=== PATIENT | male | born 1945 | race Caucasian/White ===

== ENCOUNTER 2023-06-19 10:58 | Inpatient (IN) ==
[2023-06-19] MEDS: Morphine 4 MG/ML VIAL (1 ml) IV ONE (12:36)
[2023-06-19] MEDS: Ondansetron 4 mg VIAL 2 MG/ML 2 ml VIAL IV ONE (12:37)
[2023-06-19] MEDS ORDERED: Senna TAB 8.6 mg TAB PO PRN (13:11)
[2023-06-19] MEDS ORDERED: Al Hydrox/Mg Hydrox/Simet LIQ 30 ML UDC PO PRN (13:11)
[2023-06-19] MEDS ORDERED: Naloxone Nasal Spray 4 MG/0.1 ML NASAL.SPR INTRANASAL PRN (13:16)
[2023-06-19] MEDS ORDERED: Dextrose 50% Syringe 50 ml 25 GM/50 ML SYRINGE IV PUSH PRN (14:36)
[2023-06-19] MEDS: Heparin 5000 UNITS/ML 1 mL VIAL SUBCUT SCH (15:16)
[2023-06-20] MEDS ORDERED: Dextrose 50% Syringe 50 ml 25 GM/50 ML SYRINGE IV PUSH PRN (01:48)
[2023-06-20] MEDS: Morphine 2 MG/ML SYRINGE IV PRN (02:59)
[2023-06-20 05:25] LABS: ABS Eosinophils 0.2 10^3/uL (0.0-0.5); ABS Lymphocytes 0.9 10^3/uL (1.0-4.8); ABS Monocytes 0.6 10^3/uL (0.0-1.1); ABS Neutrophils 5.1 10^3/uL (1.5-7.6); ABS Nucleated RBC 0.01 10^3/ul; Eosinophil % 2.4 %; Hematocrit 31.4 % (38-53); Hemoglobin 11.1 g/dL (13.2-16.3); Lymphocyte % 12.7 %; Mean Corpuscular Hemoglobin 32.7 pg (27-33); Mean Corpuscular Hgb Conc 35.4 g/dL (31-36); Mean Corpuscular Volume 92.3 fL (80-97); Mean Platelet Volume 9.1 fL (7.5-11.2); Nucleated Red Blood Cells % 0.1 %/100WBC (0.0-0.8); Platelet Count 101 10^3/uL (150-450); Red Cell Distribution Width 12.7 % (12-17); White Blood Count 6.9 10^3/uL (3.6-10.2)
[2023-06-20 06:23] LABS: Calcium 8.4 mg/dL (8.6-10.3); Creatinine, Serum 0.66 mg/dL (0.67-1.17); Magnesium 1.8 mg/dL (1.9-2.7); Potassium 4.1 mmol/L (3.5-5.0); eGFR CKD-EPI 95.4 (>60)
[2023-06-20] MEDS ORDERED: Bupivacaine 0.5% SDV PF 30ML VIAL ONE (15:16)
[2023-06-20] MEDS ORDERED: ceFAZolin 2 GM PREMIX 2 GM/50 ML BAG ONE (16:13)
[2023-06-20] MEDS ORDERED: fentaNYL 100 mcg/2 ml 50 MCG/ML VIAL ONE ×2 (17:19→20:39)
[2023-06-20] MEDS ORDERED: Ondansetron 4 mg VIAL 2 MG/ML 2 ml VIAL ONE (17:19)
[2023-06-20] MEDS ORDERED: Dexamethasone IV 4 MG/ML VIAL 1 ml VIAL ONE (17:19)
[2023-06-20] MEDS ORDERED: Propofol 10 MG/ML 20 ML BTL ONE (17:19)
[2023-06-20] MEDS ORDERED: Rocuronium 50 mg VIAL 10 mg/ml 5 ml VIAL (50 mg) ONE ×3 (17:19→19:30)
[2023-06-20] MEDS ORDERED: Lidocaine 2% PF 5 ML VIAL ONE (17:19)
[2023-06-20] MEDS ORDERED: HYDROmorphone 1 MG/1 ML SYRINGE IV PRN (17:39)
[2023-06-20] MEDS ORDERED: Naloxone 0.4 mg VIAL 0.4 mg/ml 1 ml VIAL IV PRN (17:39)
[2023-06-20] MEDS ORDERED: Ondansetron 4 mg VIAL 2 MG/ML 2 ml VIAL IV PRN ×2 (17:39→21:02)
[2023-06-20] MEDS ORDERED: fentaNYL 100 mcg/2 ml 50 MCG/ML VIAL IV PRN (17:39)
[2023-06-20] MEDS ORDERED: Acetaminophen IV 1 GM/100ML 1,000 MG/100 ML BAG IV PRN (17:39)
[2023-06-20] MEDS ORDERED: Acetaminophen IV 1 GM/100ML 1,000 MG/100 ML BAG IV ONE (18:10)
[2023-06-20] MEDS ORDERED: Ondansetron ODT 4 mg TAB 4 MG TAB PO PRN (21:02)
[2023-06-20] MEDS ORDERED: Magnesium Hydroxide LIQ 30 ML UDC PO PRN (21:02)
[2023-06-20] MEDS ORDERED: Heparin 5000 UNITS/ML 1 mL VIAL SUBCUT SCH (22:00)
[2023-06-20] MEDS: Lactated Ringers 1000 ml BAG 1,000 ML IV SCH (22:55)
[2023-06-21] MEDS: ceFAZolin 1 GM ADVAN 1 GM in NS 0.9% 50 ML 50 ML IVPB SCH (01:55)
[2023-06-21 07:12] LABS: Calcium 8.2 mg/dL (8.6-10.3); Creatinine, Serum 0.86 mg/dL (0.67-1.17); Potassium 5.2 mmol/L (3.5-5.0); eGFR CKD-EPI 88.1 (>60)
[2023-06-21 07:56] LABS: Hematocrit 28.1 % (38-53); Hemoglobin 9.8 g/dL (13.2-16.3); Mean Platelet Volume 9.5 fL (7.5-11.2); Platelet Count 92 10^3/uL (150-450)
[2023-06-21] MEDS: Vitamin THERAPEUTIC TAB PO SCH (07:56)
[2023-06-21] MEDS: Insulin GLARGINE 100 un/ml 10 ml VIAL SUBCUT SCH (08:00)
[2023-06-21] MEDS: Magnesium Hydroxide LIQ 30 ML UDC PO SCH (08:00)
[2023-06-21] MEDS ORDERED: Insulin GLARGINE 100 un/ml 10 ml VIAL SUBCUT SCH (09:00)
[2023-06-22 07:16] LABS: Hematocrit 27.1 % (38-53); Hemoglobin 9.4 g/dL (13.2-16.3); Mean Platelet Volume 9.3 fL (7.5-11.2); Platelet Count 85 10^3/uL (150-450)
[2023-06-23 06:11] LABS: Hematocrit 24.7 % (38-53); Hemoglobin 8.7 g/dL (13.2-16.3); Mean Platelet Volume 9.4 fL (7.5-11.2); Platelet Count 98 10^3/uL (150-450)
[2023-06-23] MEDS: Lactulose 30 ml UDC PO PRN (09:18)
[2023-06-23] MEDS: Insulin GLARGINE 100 un/ml 10 ml VIAL SUBCUT SCH (09:19)
[2023-06-23 11:04] VITALS: BP 122/66
[2023-06-23 11:41] LABS: Rapid COVID-19 Molecular Undetected (Undetected)
== END 2023-06-23 12:45 | DRG 522 ==
LOC: ED 10:58 → EDHOLD 10:58 → SUATTDRO 13:11 → AA 06-20 14:36 → SSU 06-20 22:07
PROVIDERS: ADMIT Internal Medicine; ATTEND Student in an Organized Health Care Education/Training Program